=== PATIENT | male | born 1965 | race Caucasian/White ===

== ENCOUNTER 2020-07-15 06:52 | Inpatient (IN) | payer OTHER ==
[~2020-07-15] VITALS: Ht 172.7 cm; Wt 115.7 kg
[2020-07-15] MEDS ORDERED: LORAZEPAM INJ 2 MG/ML VIAL IV ONE (07:15)
[2020-07-15 07:27] LABS: BASOPHILS % 0.5 % (0.0-1.0); EOSINOPHILS # (AUTO) 0.1 (0.0-0.4); HEMATOCRIT 42.3 % (38.2-49.6); HEMOGLOBIN 14.2 g/dL (14.0-18.0); LYMPHOCYTES # (AUTO) 1.7 (1.0-3.2); LYMPHOCYTES % 27.7 % (18.0-39.1); MEAN CORPUSCULAR HEMOGLOBIN 30.3 pg (28-32); MEAN CORPUSCULAR HGB CONC 33.6 g/dL (31-35); MEAN CORPUSCULAR VOLUME 90.4 fL (81-99); MONOCYTES # (AUTO) 0.6 (0.2-0.8); MONOCYTES % 9.6 % (4.4-11.3); NEUTROPHILS # (AUTO) 3.8 (2.1-6.9); NEUTROPHILS % 60.7 % (38.7-80.0); PLATELET COUNT 230 x10e3/uL (140-360); RED BLOOD COUNT 4.68 x10e6/uL (4.3-5.7); RED CELL DISTRIBUTION WIDTH 13.2 % (11.7-14.4)
[2020-07-15 07:52] LABS: INR 0.92
[2020-07-15 07:53] LABS: PARTIAL THROMBOPLASTIN TIME 29.1 seconds (23.8-35.5)
[2020-07-15 07:54] LABS: CLARITY,URINE CLEAR (CLEAR); COLOR,URINE YELLOW (YELLOW); KETONES,URINE NEGATIVE (NEGATIVE); LEUKOCYTE ESTERASE ,URINE NEGATIVE (NEGATIVE); NITRITE,URINE NEGATIVE (NEGATIVE); PROTEIN,URINE DIPSTICK NEGATIVE (NEGATIVE); URINE UROBILINOGEN 0.2 mg/dL (0.2 - 1)
[2020-07-15 07:56] LABS: AMPHETAMINES SCREEN,URINE NEGATIVE (NEGATIVE); BENZODIAZEPINES SCREEN,URINE NEGATIVE (NEGATIVE); PHENCYCLIDINE SCREEN,URINE NEGATIVE (NEGATIVE)
[2020-07-15 07:57] LABS: ALANINE AMINOTRANSFERASE 29 IU/L (0-55); ALBUMIN 4.1 g/dL (3.5-5.0); ALBUMIN/GLOBULIN RATIO 1.2 (0.8-2.0); ALKALINE PHOSPHATASE 98 IU/L (40-150); ANION GAP 13.9 mmol/L (8-16); BLOOD UREA NITROGEN 14 mg/dL (7-26); BUN/CREATININE RATIO 15 (6-25); CALCIUM 9.3 mg/dL (8.4-10.2); CARBON DIOXIDE 28 mmol/L (22-29); CHLORIDE 101 mmol/L (98-107); CREATINE KINASE 450 IU/L (30-200); CREATININE, SERUM 0.95 mg/dL (0.72-1.25); EST GLOMERULAR FILTRATION RATE > 60 ML/MIN (60-); GLUCOSE 95 mg/dL (74-118); POTASSIUM 3.9 mmol/L (3.5-5.1); SODIUM 139 mmol/L (136-145)
[2020-07-15 07:59] LABS: SALICYLATE < 5.0 mg/dL (0-30)
[2020-07-15 08:08] LABS: BACTERIA,URINE MODERATE /HPF; EPITHELIAL CELLS,URINE RARE /LPF; WBC,URINE (MAN) 0-5 /HPF (0-5)
[2020-07-15] MEDS ORDERED: SODIUM CHLORIDE 0.9% 1000ML 1,000 ML IV STA (08:09)
[2020-07-15] MEDS ORDERED: ONDANSETRON HCL INJ 2MG/ML 2ML 2 MG/ML VIAL IV PRN ×2 (08:15→11:00)
[2020-07-15] MEDS ORDERED: LORAZEPAM INJ 2 MG/ML VIAL IV PRN (08:15)
[2020-07-15 09:20] LABS: THYROID STIMULATING HORMONE 3.787 uIU/mL (0.350-4.940)
[2020-07-15 09:39] VITALS: BP 117/84
[2020-07-15] MEDS ORDERED: ACETAMINOPHEN/CODEINE 300MG - 30MG TAB PO PRN (11:00)
[2020-07-15] MEDS ORDERED: MELATONIN 5 MG TABLET PO PRN (11:00)
[2020-07-15] MEDS ORDERED: CYCLOBENZAPRINE HCL 10 MG TAB PO PRN (11:00)
[2020-07-15] MEDS ORDERED: CEPHALEXIN500 MG PO (11:40)
[2020-07-15] MEDS ORDERED: RIFAMPIN300 MG PO (11:40)
[2020-07-15] MEDS ORDERED: LISINOPRIL20 MG PO (11:40)
[2020-07-15] MEDS ORDERED: ALLOPURINOL300 MG PO (11:40)
[2020-07-15] MEDS ORDERED: ULTRAM 50MG50 MG PO (11:40)
[2020-07-15] MEDS ORDERED: TRAMADOL HCL 50 MG TAB PO PRN (11:45)
[2020-07-15 12:00] VITALS: BP 117/84
[2020-07-15] MEDS: SODIUM CHLORIDE 0.9% 1000ML 1,000 ML IV SCH ×2 (13:53→18:16)
[2020-07-15 14:56] LABS: CREATINE KINASE MB 3.9 ng/mL (0-5.0)
[2020-07-15] MEDS: GABAPENTIN 100 MG CAP PO SCH ×2 (15:09→20:51)
[2020-07-15 16:51] VITALS: BP 123/87
[2020-07-15 19:44] LABS: CREATINE KINASE MB 4.2 ng/mL (0-5.0)
[2020-07-15 20:00] VITALS: BP 138/94
[2020-07-15] MEDS ORDERED: CLONAZEPAM 1 MG TAB PO SCH (20:30)
[2020-07-15 22:19] VITALS: BP 138/94
[2020-07-16] VITALS: BP 116/83
[2020-07-16 04:00] VITALS: BP 119/85
[2020-07-16] MEDS: SODIUM CHLORIDE 0.9% 1000ML 1,000 ML IV SCH (04:33)
[2020-07-16 06:01] LABS: BASOPHILS % 0.6 % (0.0-1.0); EOSINOPHILS # (AUTO) 0.1 (0.0-0.4); EOSINOPHILS % 1.4 % (0.0-6.0); HEMATOCRIT 39.2 % (38.2-49.6); HEMOGLOBIN 13.3 g/dL (14.0-18.0); LYMPHOCYTES # (AUTO) 1.4 (1.0-3.2); LYMPHOCYTES % 26.8 % (18.0-39.1); MEAN CORPUSCULAR HEMOGLOBIN 30.4 pg (28-32); MEAN CORPUSCULAR HGB CONC 33.9 g/dL (31-35); MEAN CORPUSCULAR VOLUME 89.5 fL (81-99); MONOCYTES # (AUTO) 0.5 (0.2-0.8); MONOCYTES % 9.8 % (4.4-11.3); NEUTROPHILS # (AUTO) 3.1 (2.1-6.9); PLATELET COUNT 199 x10e3/uL (140-360); RED BLOOD COUNT 4.38 x10e6/uL (4.3-5.7); RED CELL DISTRIBUTION WIDTH 13.1 % (11.7-14.4)
[2020-07-16 06:26] LABS: ALANINE AMINOTRANSFERASE 22 IU/L (0-55); ALBUMIN 3.5 g/dL (3.5-5.0); ALBUMIN/GLOBULIN RATIO 1.1 (0.8-2.0); ALKALINE PHOSPHATASE 86 IU/L (40-150); ANION GAP 12.8 mmol/L (8-16); BLOOD UREA NITROGEN 12 mg/dL (7-26); BUN/CREATININE RATIO 15 (6-25); CALCIUM 8.5 mg/dL (8.4-10.2); CARBON DIOXIDE 26 mmol/L (22-29); CHLORIDE 107 mmol/L (98-107); CHOL/HDL RATIO 6.1 (3.9-4.7); CHOLESTEROL 166 MD/DL (0-199); CREATININE, SERUM 0.81 mg/dL (0.72-1.25); EST GLOMERULAR FILTRATION RATE > 60 ML/MIN (60-); GLUCOSE 101 mg/dL (74-118); HDL CHOLESTEROL 27 MG/DL (40-60); LDL CHOLESTEROL 115 MG/DL (60-130); POTASSIUM 3.8 mmol/L (3.5-5.1); SODIUM 142 mmol/L (136-145); TRIGLYCERIDES 120 MG/DL (0-149)
[2020-07-16 06:49] LABS: CREATINE KINASE MB 2.6 ng/mL (0-5.0)
[2020-07-16 07:30] VITALS: BP 126/98
[2020-07-16 07:42] VITALS: BP 126/98
[2020-07-16] MEDS ORDERED: ONDANSETRON HCL 4 MG ORAL DISINTEGRATING TAB PO PRN (08:00)
[2020-07-16] MEDS ORDERED: LISINOPRIL 20 MG TAB PO SCH (09:00)
[2020-07-16] MEDS ORDERED: RIFAMPIN 300 MG CAP PO SCH (09:00)
[2020-07-16] MEDS ORDERED: ALLOPURINOL 300 MG TAB PO SCH (09:00)
[2020-07-16] MEDS: GABAPENTIN 100 MG CAP PO SCH (09:05)
[2020-07-16 11:30] VITALS: BP 116/81
== END 2020-07-16 11:44 | disposition home or self-care (01) | DRG 885 ==
LOC: ER 07:00 → ERHOLD 08:27 → MED/SURG2 09:06
PROVIDERS: ADMIT Internal Medicine; ATTEND Internal Medicine
DX: F31.10 Bipolar disorder, current episode manic without psychotic features, unspecified (principal); I10 Essential (primary) hypertension; M10.9 Gout, unspecified; G89.28 Other chronic postprocedural pain; F32.9 Major depressive disorder, single episode, unspecified; Z56.6 Other physical and mental strain related to work; Z20.822 Contact with and (suspected) exposure to COVID-19
CPT/HCPCS: 36415; 70450; 70551; 71045; 80053; 80061; 80307; 80320; 80329; 81001; 82550; 82553; 83735; 83880; 84443; 84484; 85025; 85610; 85730; 87086; 93005; 93306; 93880; 95819; 96361; 99284; J2060; J7030; U0002

== ENCOUNTER → 2023-10-12 | Day surgery (SDC) | payer BC ==
[2023-10-10 11:18] LABS: BASOPHILS % 0.6 % (0.0-1.0); EOSINOPHILS # (AUTO) 0.1 (0.0-0.4); EOSINOPHILS % 1.5 % (0.0-6.0); HEMATOCRIT 40.4 % (38.2-49.6); HEMOGLOBIN 12.2 g/dL (14.0-18.0); LYMPHOCYTES # (AUTO) 2.2 (1.0-3.2); LYMPHOCYTES % 33.1 % (18.0-39.1); MEAN CORPUSCULAR HEMOGLOBIN 26.1 pg (28-32); MEAN CORPUSCULAR HGB CONC 30.2 g/dL (31-35); MEAN CORPUSCULAR VOLUME 86.5 fL (81-99); MONOCYTES # (AUTO) 0.7 (0.2-0.8); NEUTROPHILS # (AUTO) 3.6 (2.1-6.9); NEUTROPHILS % 54.3 % (38.7-80.0); PLATELET COUNT 271 x10e3/uL (140-360); RED BLOOD COUNT 4.67 x10e6/uL (4.3-5.7); RED CELL DISTRIBUTION WIDTH 15.6 % (11.7-14.4); WHITE BLOOD COUNT 6.61 x10e3/uL (4.8-10.8)
[2023-10-10 11:41] LABS: ANION GAP 11.3 mmol/L (8-16); CALCIUM 8.8 mg/dL (8.4-10.2); CREATININE, SERUM 0.89 mg/dL (0.72-1.25); POTASSIUM 4.3 mmol/L (3.5-5.1)
[~2023-10-12] MED LIST: ACETAMINOPHEN 1000 MG/100 ML IV ONE; ALEVE220 M1; ALLOPURINOL300 MG PO; CEFAZOLIN SODIUM 2 GM ONE; CEPHALEXIN500 MG PO; CIALIS5 MG; DEXAMETHASONE SOD PHOS INJ 4 MG/ML SDV ONE; DOXAZOSIN MESYLA2 MG PO; FENTANYL CITRATE/PF 100MCG/2 ML INJ ONE; LACTATED RINGER'S 1,000 ML ONE; LIDOCAINE HCL 2% LOCAL INJ 5 ML SDV VIAL INJ ONE; LISINOPRIL20 MG PO; MIDAZOLAM HCL 2 MG/2 ML VIAL ONE; MULTI-VITAMIN1 EACH PO; NEOSTIGMINE 1 MG/ML 10ML VIAL ONE; ONDANSETRON HCL INJ 2MG/ML 2ML 2 MG/ML VIAL ONE; PROPOFOL IV EMULSION 10 MG/ML 20 ML VIAL ONE; RIFAMPIN300 MG PO; SEVOFLURANE INHAL SOLN 250 ML PEN BTL ONE; TEST; TESTOSTERONE; ULTRAM 50MG50 MG PO
[2023-10-12 08:45] VITALS: TEMP 98.5
[2023-10-12] MEDS: PHENAZOPYRIDINE HCL 100 MG TAB ONE (08:46)
[2023-10-12 09:40] VITALS: BP 147/92; PULSE 69; RESP 18; O2SAT 98
== END | disposition home or self-care (01) ==
LOC: OR 06:14
PROVIDERS: ATTEND Urology
DX: L82.1 Other seborrheic keratosis (principal); N40.1 Benign prostatic hyperplasia with lower urinary tract symptoms; N13.8 Other obstructive and reflux uropathy; R35.1 Nocturia; R39.12 Poor urinary stream; N52.9 Male erectile dysfunction, unspecified; E29.1 Testicular hypofunction; I10 Essential (primary) hypertension; M06.9 Rheumatoid arthritis, unspecified; Z88.6 Allergy status to analgesic agent; Z01.810 Encounter for preprocedural cardiovascular examination; Z01.812 Encounter for preprocedural laboratory examination; Z79.1 Long term (current) use of non-steroidal anti-inflammatories (NSAID); Z79.899 Other long term (current) drug therapy; Z68.37 Body mass index [BMI] 37.0-37.9, adult; Z86.73 Personal history of transient ischemic attack (TIA), and cerebral infarction without residual deficits
CPT/HCPCS: 11423; 13132; 36415; 52000; 80048; 85025; 88304; 93005; J0131; J1100; J2001; J2250; J2405; J2704; J2710; J3010; J7121